=== PATIENT | female | born 1995 | race Two or more races ===

== ENCOUNTER 2025-05-29 13:41 | Emergency (ER) | payer OTHER ==
[~2025-05-29] VITALS: Ht 162.6 cm; Wt 61.2 kg
[2025-05-29] MEDS ORDERED: SYNTHROID200 MCG (15:33)
== END 2025-05-29 17:13 | disposition home or self-care (01) ==
LOC: ER 13:41
DX: R30.0 Dysuria (principal); Z88.8 Allergy status to other drugs, medicaments and biological substances